=== PATIENT | female | born 1990 | race African-American/Black ===

== ENCOUNTER 2017-01-02 18:07 | Inpatient (IN) | payer OTHER ==
[~2017-01-02] VITALS: Ht 170.2 cm; Wt 171.1 kg
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
[2017-01-02 18:52] LABS: ABSOLUTE BASOPHIL COUNT 0 /CUMM (0.0-0.2); ABSOLUTE EOSINOPHIL COUNT 0.1 /CUMM (0.0-0.7); ABSOLUTE GRANULOCYTE CT 6.8 /CUMM (1.4-6.5); ABSOLUTE LYMPH COUNT 2.7 /CUMM (1.2-3.4); ABSOLUTE MONOCYTE COUNT 0.5 /CUMM (0.10-0.60); BASOPHIL % 0.4 % (0.0-2.0); EOSINOPHIL % 1.4 % (0-5); GRANULOCYTE % 66.7 % (42.2-75.2); HEMATOCRIT 29.8 % (37-47); MEAN CORPUSCULAR HGB 22.4 PG (27.0-31.0); MEAN CORPUSCULAR HGB CONC 30.8 G/DL (33.0-37.0); MEAN CORPUSCULAR VOLUME 72.9 FL (81.0-99.0); MEAN PLATELET VOLUME 8.2 FL (7.4-10.4); PLATELET COUNT 369 /CUMM (130-400); RBC DISTRIBUTION WIDTH 17.9 % (11.5-14.5); RED BLOOD CELL CT 4.09 /CUMM (4.20-5.40); WHITE BLOOD CELL COUNT 10.2 /CUMM (4.8-10.8)
--- NOTE | 2017-01-02 19:00 | NUR ---
PT CALM AND COOPERATIVE. PT STATED SHE CURRENTLY TAKES 10MG PROZAC BUT WAS SUPPOSED TO BE INCREASED FROM 10MG TO 20MG BY PROVIDER BUT IT NEVER WAS. PT STATED SHE HAS HAD INCREASED DEPRESSION RECENTLY. WHILE PT WAS WASHING DISHES TODAY (01/02/17), PT BECAME "VERY SAD" WITH NO APPARENT CAUSE AND BEGAN CRYING. PT SAY A KNIFE AND THOUGHT ABOUT CUTTING HER WRIST. THIS RN SPOKE TO PT'S CHILD'S GEOTECHNICAL LABORATORY TECHNICIAN, LUIS M ROONEY, . GEOTECHNICAL LABORATORY TECHNICIAN STATED PT'S CHILD IS WITH HIS GRANDMOTHER, CHAPARRITA MITCHELL , AND IS SAFE. GEOTECHNICAL LABORATORY TECHNICIAN REQUESTING THAT THE GRANDMOTHER BE UPDATED REGARDING DISPOSITION REGARDING FOREST OFFICER
[2017-01-02] MEDS ORDERED: FLUOXETINE HCL10 M2 PO (20:18)
[2017-01-02] MEDS ORDERED: LITHIUM CARBON300 M4 PO (20:19)
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
--- NOTE | 2017-01-02 21:20 | NUR ---
PT SLEEPING ON BED. SITTERS PRESENT
--- NOTE | 2017-01-02 22:22 | NUR ---
PER CRISIS, PT IS HOLD OVER FOR REASSESSMENT IN MORNING
--- NOTE | 2017-01-03 00:11 | NUR ---
PT CALM AND COOPERATIVE CURRENTLY. RESTING COMFORTSBLY ON BED IN .
[2017-01-03 00:47] LABS: LITHIUM < 0.2 mmol/L (0.6-1.2)
--- NOTE | 2017-01-03 02:55 | NUR ---
PT SLEEPING WITH REGULAR RR NOTED, NO ACUTE DISTRESS NOTED. SITTER REMAINS PRESENT. WILL CTM.
--- NOTE | 2017-01-03 05:24 | NUR ---
PT CONTINUES TO SLEEP WITH REGULAR RR NOTED. SITTER PRESENT
--- NOTE | 2017-01-03 06:00 | NUR ---
AWAKENED FOR VS. CO CASTELLANOS
--- NOTE | 2017-01-03 06:10 | NUR ---
TYLENOL 2TAB PO GIVEN. SITTER AT DOOR.
--- NOTE | 2017-01-03 07:27 | NUR ---
PT APPEARS TO BE SLEEPING AT THIS TIME WITH REGULAR RESPIRATIONS NOTED AND EQUAL CHEST RISE AND FALL SITTER REMAINS PRESENT AT THIS TIME AWAITING CRISIS RE EVAL AND DISPO TODAY
--- NOTE | 2017-01-03 08:51 | NUR ---
COPYING MACHINE MECHANIC IN ROOM FOR EVAL MOTHER CALLED - STATED SHE WILL CALL BACK LATER
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
--- NOTE | 2017-01-03 11:42 | NUR ---
PT AWAITING ADMISSION.
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
--- NOTE | 2017-01-03 13:15 | NUR ---
MEDICATED ORDERED (SEE MAR)
--- NOTE | 2017-01-03 14:33 | NUR ---
AWAITING ADMISSION TO [facility].
--- NOTE | 2017-01-03 16:11 | NUR ---
REPORT GIVEN TO KANIKA TRIANA
[2017-01-03 17:27] VITALS: BP 145/85
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
[2017-01-03 19:52] VITALS: BP 142/79
--- NOTE | 2017-01-03 21:25 | Admission Certification ---
Admission Certification Certification Statement - As attending physician, I certify that at the time of - admission, based on clinical presentation, severity of - symptoms, need for further diagnostic testing and - therapeutic interventions, and risk of adverse outcomes - without in-hospital treatment, in my clinical assessment, - this patient requires an acute hospital stay for a minimum - of two nights or longer. I have also considered psychsocial - factors such as support system, advanced age, financial - issues, cognitive issues, and failed out-patient treatments, - past re-admission history, safety of patient, and lack of - compliance as applicable. Specific rationale supporting this admission is: Depression, suicidal ideation.
--- NOTE | 2017-01-03 21:25 | History & Physical ---
General Information and HPI MD Statement: I have seen and personally examined GABBY DAMICO and documented this H&P. The patient is a 26 year old F who presented with a patient stated chief complaint of [depression]. Source of Information: patient Exam Limitations: no limitations History of Present Illness: 26 yo morbidly obese F with h/o bipolar disorder, prediabetes, asthma, HTN ( stopped meds), is admitted to Inpatient Psychiatry for worsening depression and suicidal ideation. She attempted to cut herself with a knife. Patient works at a [employer] and is a single mother. She has reportedly been noncompliant with her meds for depression. She was diagnosed with hypertension and stopped taking her meds few months ago. She reports she is being monitored for her prediabetes. She was told she has asthma and has an inhaler which she rarely uses. Last asthma exacerbation was 1 year ago. She c/o occasional right frontal headache that has resolved with Tylenol. No vision changes or dizziness. She currently denies chest pain, palpitations, dyspnea, GI or symptoms. 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 MOTHER (Hypertension). Paternal grandmother (CAD, [place]). Aunt (Colon cancer). Psychosocial History Where do you live? Home Who Do You Live With? child Services at Home: None Primary Language: Slovenian Smoking Status: Former Smoker (quit 2 months ago) ETOH Use: occasional use Illicit Drug Use: denies illicit drug use Functional Ability ADLs Independent: dressing, eating, toileting, bathing. Ambulation: independent IADLs Independent: shopping, food prep, telephone, transportation. Employment History Employment Employed ([employer]) Review of Systems Review of Systems Constitutional: Denies: chills, fever, weakness. EENTM: Reports: no symptoms. Cardiovascular: Denies: chest pain, orthopena, palpitations, peripheral edema. Respiratory: Denies: cough, hemoptysis, short of breath. GI: Denies: abdominal pain, constipation, diarrhea, nausea, vomiting. Genitourinary: Reports: no symptoms. Musculoskeletal: Reports: no symptoms. Neurological/Psychological: Reports: see HPI. Hematologic/Endocrine: Reports: no symptoms. All Other Systems: Reviewed and Negative Exam & Diagnostic Data Last 24 Hrs of Vital Signs/I&O Vital Signs Date Time Temp Pulse Resp B/P B/P Pulse O2 O2 Flow FiO2 Mean Ox Delivery Rate 01/04 1552 87 146/89 01/04 1223 82 138/81 01/04 0739 97.4 97 132/75 01/03 1952 99.1 86 142/79 Intake & Output 01/04 1600 01/04 0800 01/04 0000 Intake Total Output Total Balance Patient 377 lb Weight Physical Exam General Appearance Alert, Oriented X3, Cooperative, No Acute Distress Skin No Significant Lesion HEENT Atraumatic, PERRLA, EOMI Neck Supple Cardiovascular Regular Rate, Normal S1, Normal S2, No Murmurs Lungs Clear to Auscultation, Normal Air Movement Abdomen Normal Bowel Sounds, Soft, No Tenderness Neurological Exam Findings: Normal Gait, Normal Speech, Strength at 5/5 X4 Ext, Sensation Intact, Cranial Nerves 3-12 NL, Reflexes 2+ Cranial Nerves II through XII: Grossly intact Extremities No Edema, Normal Pulses Last 24 Hrs of Labs/Bravo: Laboratory Tests 01/02/171914: Urine Opiates Screen < 100.00, Methadone Screen < 40, Barbiturate Screen < 60, Ur Phencyclidine Scrn < 6.00, Amphetamines Screen < 100, U Benzodiazepines Scrn < 85, Urine Cocaine Screen < 50, Urine Cannabis Screen < 5.00, Urine Test NEGATIVE 01/02/171836: Anion Gap 9, Estimated GFR > 60, BUN/Creatinine Ratio 20.0, Glucose 88, Calcium 9.0, Total Bilirubin 0.2, AST 13 L, ALT 36, Alkaline Phosphatase 50, Total Protein 6.7, Albumin 3.8, Globulin 2.9, Albumin/Globulin Ratio 1.3, CBC w Diff NO MAN DIFF REQ, RBC 4.09 L, MCV 72.9 L, MCH 22.4 L, RDW 17.9 H, MPV 8.2, Gran % 66.7, Lymphocytes % 26.5, Monocytes % 5.0, Eosinophils % 1.4, Basophils % 0.4, Absolute Granulocytes 6.8 H, Absolute Lymphocytes 2.7, Absolute Monocytes 0.5, Absolute Eosinophils 0.1, Absolute Basophils 0, PUBS MCHC 30.8 L, [place] < 0.2 L, Serum Alcohol < 10.0 Diagnostic Data EKG Results -- CXR Results -- Assessment/Plan Assessment: 26 yo F with h/o bipolar disorder, now admitted for depression and suicidal ideation. 1. Continue management per Psych team. 2. Monitor BP, per med claim history, patient was on amlodipine and HCTZ, however she stopped these meds. Since her BP is persistently elevated, will resume amlodipine for now. Consider adding HCTZ if needed. Will obtain EKG. 3. h/o asthma. Provide TRC nebs as needed. 4. Microcytic anemia, chronic. Will obtain iron studies, B12 and folic acid. DVT ppx low risk, early ambulation. As Ranked By This Provider Problem List: 1. Major depression 2. Bipolar disorder, unspecified Miscellaneous Miscellaneous Documentation Attending Case Discussed With: Vince Grey Primary Care Physician: MARJ RAMOS MD Patient sees these Specialists -- Level of Patient Care: KANIKA Glasgow MD Review Statement Attending Statement Attending Statement: examined this patient
[2017-01-04 07:39] VITALS: BP 132/75
[2017-01-04 12:23] VITALS: BP 138/81
--- NOTE | 2017-01-04 14:12 | NUR ---
PT HAS BEEN VISIBLE IN THE MILIEU TODAY. HER GOAL WAS TO TRY NOT TO CRY. IN THE MILIEU PT HAS BEEN INTERACTING POSITIVELY WITH PEERS AND STAF ALIKE. SHE HAS BEEN IN ALL GROUPS TODAY, AND ADJUSTING WELL TO THE MILIEU. PT DENIES THOUGHTS OF HURTING HERSELF WHEN ASKED.
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
[2017-01-04 15:52] VITALS: BP 146/89
--- NOTE | 2017-01-04 15:56 | SOCIAL WORKER TX PLAN PSYCH ---
Treatment Plan - Please Document: - Evidence that there is ongoing collaboration between - the patient and the interdisciplinary team, - including the patient's active participation and - responsibility for engaging in the treatment regimen, - and that the treatment plan is individualized and - relevant to the patient's conditions. - Treatment plan should reflect documentation indicating - that all active therapeutic efforts are included. Strengths/Capabilities: employed, in treatment,supportive family Physical Limitations (Interventions): none stated Problem/Goals #1 Problem #1: Mood flucuation Goal (Short Term): Explore feelings and thoughts about self, his or her own abilities, and future plans. Explore mood state, level of energy, level of control over thoughts, and sleeping pattern. Goal (Mcfp): Accomplish mood stability, having slower reaction with anger, less expansive, and being more socially appropriate and sensitive. To be med compliant, and follow up with appropriate levels of care upon discharge to maintain stabilty of mood Interventions: Learn ways to manage symptoms of bipolar accordingly and identify coping skills to prevent suicidal ideation from occurring due to anxious/depressed feelings. Learn ways to manage medications accordingly and identify positive supports to manage unusual symptoms that may occur. Learn ways to manage bipolar symptoms accordingly and identify positive supports to manage life stressors and mood fluctuations. Modalities: Encourage groups, education on bipolar disorder, support meeting. DSM5/PS Stressors/Medical Prob Diagnosis' (DSM 5, Stressors, Medical): Bipolar D/O unspecified depressed F31.9 Current GAF: 25 Treatment Team - Responsibilities of members of the treatment team include: - Medication Management- MD or EMPLOYEE'S REPRESENTATIVE - Medication Administration and Monitoring- Nurse - Group Therapy- Occupational Therapist - 1:1 Therapy,Disch Planning,family involvement-Residence Director
--- NOTE | 2017-01-04 15:59 | SOCIAL WORKER PROG NOTE PSYCH ---
Social Work Progress Note Progress Note Mother Kaci will attend family meeting tomorrow at 3p
[2017-01-04 19:33] VITALS: BP 147/88
--- NOTE | 2017-01-04 19:58 | NUR ---
PT IS CALM, COOPERATIVE WITH STAFF AND PEERS, AND COMPLIANT WITH UNIT RULES. PT IS OFTEN IN MILIEU, INTERACTING WELL WITH PEERS. MOOD IS STABLE, AFFECT IS EUTHYMIC TO FULL RANGE, COMMUNICATION IS ORGANIZED AND APPEARS NORMAL IN ALL RESPECTS, AND APPETITE IS NORMLA. PT DENIES SI AT THIS TIME.
--- NOTE | 2017-01-05 06:54 | NUR ---
PT QUIETLY SOCIAL WITH ROOMMATE. PT WATCHED TV WITH OTHERS ON EVENINGS. PT SLEPT.
[2017-01-05 07:42] VITALS: BP 142/76
[2017-01-05 08:32] LABS: ABSOLUTE BASOPHIL COUNT 0 /CUMM (0.0-0.2); ABSOLUTE EOSINOPHIL COUNT 0.2 /CUMM (0.0-0.7); ABSOLUTE GRANULOCYTE CT 5.6 /CUMM (1.4-6.5); ABSOLUTE LYMPH COUNT 2.7 /CUMM (1.2-3.4); ABSOLUTE MONOCYTE COUNT 0.3 /CUMM (0.10-0.60); BASOPHIL % 0.3 % (0.0-2.0); EOSINOPHIL % 1.9 % (0-5); GRANULOCYTE % 63.5 % (42.2-75.2); HEMATOCRIT 33.1 % (37-47); MEAN CORPUSCULAR HGB 22.8 PG (27.0-31.0); MEAN CORPUSCULAR HGB CONC 31.7 G/DL (33.0-37.0); MEAN CORPUSCULAR VOLUME 71.9 FL (81.0-99.0); MEAN PLATELET VOLUME 8.9 FL (7.4-10.4); PLATELET COUNT 408 /CUMM (130-400); RBC DISTRIBUTION WIDTH 17.6 % (11.5-14.5); RED BLOOD CELL CT 4.61 /CUMM (4.20-5.40); WHITE BLOOD CELL COUNT 8.8 /CUMM (4.8-10.8)
--- NOTE | 2017-01-05 11:51 | NUR ---
PT IS CALM AND COOPERATIVE. SHE IS ATTENDING GROUPS AND COMPLIANT WITH HER MED REGIME. PT TALKS APPROPRIATELY IN GROUPS ABOUT HER MOOD DISORDER AND SOME POSITIVE WAYS SHE CAN COPE. WHEN ASKED SHE DENIED ANY THOUGHTS OF SUICIDE OR SELF HARM
[2017-01-05 12:05] VITALS: BP 133/79
--- NOTE | 2017-01-05 14:56 | CP SOUTH PROGRESS NOTE PSYCH ---
Psych (Inpt) Progress Note Progress Note Include the following elements, when applicable: Involvement in the active treatment of the patient with behavioral observations of the patient and the patient's response to the treatment. Review of the ongoing treatment process in the context of the treatment plan. Indication of how multi-disciplinary staff members are carrying out the treatment plan. Plans for future interventions and recommendations for revision of the treatment plan. Liaison with other physicians/providers. Progress Note: I discussed this patient's progress to date, current mental status, treatment process in the context of the treatment plan, and discharge planning with staff/ team in the daily morning inpatient team meeting. I also met with the patient myself in individual session. OBJECTIVE: Current Medications Sig/Martir Start time Last Medication Dose Route Stop Time Status Admin Acetaminophen 650 MG Q6P PRN 01/03 1215 AC PO Al Hydroxide/Mg 30 ML Q4-6 PRN PRN 01/03 1215 AC Hydroxide PO Albuterol Sulfate 2 PUF Q4P PRN 01/04 1915 AC INH Amlodipine Besylate 5 MG DAILY 01/04 191 AC 01/05 PO 0759 Famotidine 40 MG DAILY 01/03 1204 AC 01/05 PO 0759 Fluoxetine HCl 20 MG 0800 01/05 0800 AC 01/05 PO 0759 Gabapentin 300 MG Q6P PRN 01/03 1215 AC PO Lurasidone HCl 20 MG DAILY@0800 01/05 0800 AC 01/05 PO 0759 Magnesium Hydroxide 30 ML AT BEDTIME PRN 01/03 1215 AC PO Multivitamins 1 TAB DAILY 01/03 1205 AC 01/05 PO 0759 Trazodone HCl 50 MG AT BEDTIME NEED.. 01/03 1215 AC PO Vital Signs Date Time Temp Pulse Resp B/P B/P Pulse O2 O2 Flow FiO2 Mean Ox Delivery Rate 01/05 1603 91 143/95 01/05 1205 74 133/79 01/05 0759 98.3 78 22 142/76 01/05 0742 98.3 78 142/76 01/04 2228 147/88 01/04 1933 99.0 82 147 Laboratory Tests 01/05/17 0659: Hemoglobin A1c 5.7, Iron 32 L, TIBC 330, Ferritin 38.4, Triglycerides 130, Cholesterol 182, LDL Cholesterol, Calc 127, HDL Cholesterol 29 L, Cholesterol/ HDL Ratio 6 H, Vitamin B12 352, Folate 10.8, TSH 3.620, CBC w Diff NO MAN DIFF REQ, RBC 4.61, MCV 71.9 L, MCH 22.8 L, RDW 17.6 H, MPV 8.9, Gran % 63.5, Lymphocytes % 30.4, Monocytes % 3.9, Eosinophils % 1.9, Basophils % 0.3, Absolute Granulocytes 5.6, Absolute Lymphocytes 2.7, Absolute Monocytes 0.3, Absolute Eosinophils 0.2, Absolute Basophils 0, PUBS MCHC 31.7 L ASSESSMENT: Chart, progress notes, labs, VS and medication list reviewed. Vital signs within normal limits. Lab results reviewed - see above. Reviewed patient's progress to date with nursing staff who described the patient as visible in the milieu, social with peers, involved in group/community activites, no reports of SI and sleeping well. Met with patient for the first time today on CPS, together with Diane Sorenson LCSW and the patient's mother, Kaci, for a family meeting. The patient's treatment progress to date, medication regimen, level of safety and discharge planning were reviewed and discussed. She reported feeling "off" from recent increase in Prozac to 20mg daily and described this as "the same feeling I experienced" after taking #2 Prozac 10mg caps [employer]. Patient struggled to elaborate further on this feeling, but stated she didn't like it. Patient was agreeable to decreasing Prozac back to 10mg QAM. Patient stated she overall is tolerating Latuda well with the exception of feeling sleepy. Offered to reschedule Latuda to PM with food. Patient declined option stating she forgets to take medications at night. Patient reported her mood as "good." Affect was full-range. She laughed and engaged appropriately. She denied feeling hopeless, helpless, worthless or guilty. Reported her sleep and appetite are good. Reported her energy is "so so, I'm still adjusting to medications." She denied passive and active suicidal ideation, plans and intent. Gave protective factors of "my mom" and "my son." She denied homicidal ideation, auditory and visual hallucinations. Eye contact was appropriate. Speech was normal in rate, tone and volume. The patient's mother did not express any acute safety concerns surrounding the patient being discharged. However, she was in favor, of a discharge plan that included more than individual therapy and medication management. IOP was recommended by treatment team, however the patient expressed her work schedule would not accomodate IOP schedule. Patient was in agreement to resuming services at [facility]. She was open about exploring group therapy at [facility] which she had tried in the past in addition to medication management and individual therapy, or having more frequent individual therapy sessions arranged. Both the patient and her mother were in favor of plan. PLAN: 1. Decrease Prozac from 20mg QAM to 10mg QAM. 2. Cont. Latuda 20mg QAM for mood stabilization. 3. Arrange after care services with [facility]. 4. Tentative discharge tomorrow.
[2017-01-05 16:03] VITALS: BP 143/95
[2017-01-05 19:41] VITALS: BP 143/79
--- NOTE | 2017-01-05 20:40 | NUR ---
PT IS CALM, COOPERATIVE WITH STAFF AND PEERS, AND COMPLIANT WITH UNIT RULES. PT IS OFTEN IN MILIEU, INTERACTING WELL WITH OTHERS. MOOD IS STABLE, AFFECT IS FULL RANGE, COMMUNICATION IS ORGANIZED AND APPEARS NORMAL IN ALL RESPECTS, AND APPETITE IS NORMAL. PT DENIES SI AT THIS TIME.
--- NOTE | 2017-01-06 05:56 | NUR ---
PT QUIETLY SOCIAL WITH ROOMMATE. PT SLEPT. PT LOOKING FORWARD TO DC TODAY.
[2017-01-06 07:33] VITALS: BP 138/74
[2017-01-06] MEDS ORDERED: FLUOXETINE HCL10 M2 PO (07:56)
[2017-01-06] MEDS ORDERED: LATUDA20 M1 PO (07:57)
[2017-01-06] MEDS ORDERED: FAMOTIDINE20 M1 PO (08:00)
[2017-01-06] MEDS ORDERED: ONE DAILY MULT1 EAC2 PO (08:01)
[2017-01-06] MEDS ORDERED: AMLODIPINE BESYL5 M1 PO (08:02)
--- NOTE | 2017-01-06 08:02 | CP SOUTH PROGRESS NOTE PSYCH ---
Psych (Inpt) Progress Note Progress Note Include the following elements, when applicable: Involvement in the active treatment of the patient with behavioral observations of the patient and the patient's response to the treatment. Review of the ongoing treatment process in the context of the treatment plan. Indication of how multi-disciplinary staff members are carrying out the treatment plan. Plans for future interventions and recommendations for revision of the treatment plan. Liaison with other physicians/providers. Progress Note: I discussed this patient's progress to date, current mental status, treatment process in the context of the treatment plan, and discharge planning with staff/ team in the daily morning inpatient team meeting. I also met with the patient myself in individual session. Current Medications Sig/Martir Start time Last Medication Dose Route Stop Time Status Admin Acetaminophen 650 MG Q6P PRN 01/03 1215 AC PO Al Hydroxide/Mg 30 ML Q4-6 PRN PRN 01/03 121 AC Hydroxide PO Albuterol Sulfate 2 PUF Q4P PRN 01/04 1915 AC INH Amlodipine Besylate 5 MG DAILY 01/04 191 AC 01/05 PO 0759 Famotidine 40 MG DAILY 01/03 1204 AC 01/05 PO 0759 Fluoxetine HCl 10 MG 01/06 0800 AC PO Fluoxetine HCl 20 MG 01/05 0800 DC 01/05 PO 0759 Gabapentin 300 MG Q6P PRN 01/03 121 AC PO Lurasidone HCl 20 MG DAILY@0800 01/05 0800 AC 01/05 PO 0759 Magnesium Hydroxide 30 ML AT BEDTIME PRN 01/03 121 AC PO Multivitamins 1 TAB DAILY 01/03 120 AC 01/05 PO 0759 Trazodone HCl 50 MG AT BEDTIME NEED.. 01/03 1215 AC PO Vital Signs Date Time Temp Pulse Resp B/P B/P Pulse O2 O2 Flow FiO2 Mean Ox Delivery Rate 01/06 0733 97.4 79 138/74 01/05 1941 99.8 93 143/79 01/05 1603 91 143/95 01/05 120 74 133/79 ASSESSMENT: Chart, progress notes, labs, VS and medication list reviewed. Vital signs within normal limits. No new lab results today. Met with patient this morning at 8:00AM. She shared that she felt yesterday's family meeting was very productive and felt supported by her mother. She described her mood as "really good." Affect full-range, bright, non-labile. She had no complaints. She described her energy level as "normal." Reported her sleep and appetite are good. She rated her anxiety a 2/10 (10 being the worst). She rated her depression a 0/10 (10 being the worst). She denied feeling hopeless, helpless, worthless or guilty. She denied passive and active suicidal ideation, plans and intent. Denied homicidal ideation, auditory or visual hallucinations. She denied urges to self-injure. She stated and also believed she will not harm herself or others. She identified protective factors of "my son," "my mom" and "my job." She was future oriented to return to work and follow up with outpatient psychiatric providers. Her thought process was linear and goal directed. There was no evidence of paranoia or rosalia delusions. She reported tolerating reduction in Prozac to 10mg QAM better and tolerating Latuda fairly well. She reported feeling safe and ready for discharge. PLAN: 1. Discharge today to home and into the care of mother. 2. All discharge medications were e-prescribed to [facility] in [place], [place] today. [facility] on 01/10/17 at 10:30AM, 01/18/17 at 11AM (walk-in appt.) and on 01/26/17 at 11AM. 4. F/u with Care Lolis Russell APRN, for medication management on 01/12/17 at 2:30PM. 5. In the event of an emergency, call 911/go to nearest emergency department. Patient verbalized understanding of instructions.
--- NOTE | 2017-01-06 09:04 | NUR ---
PT IS SCHEDULED FOR DISCHARGE TODAY TO [facility]. SHE STATES HER FOLLOW UP WILL BE WITH [facility] AND SHE AGREES WITH THIS PLAN. SHE DENIES ANY THOUGHTS OF SUICIDE OR SELF HARM AND IS LOOKING FOR [place] TO GOING HOME. SHE VERBALIZES A GOOD UNDERSTANDING OF HER MED REGIME. PT IS GIVEN EDUCATION R/T MANAGING HER MOOD DISORDER AND ON PREVENTING SUICIDE
--- NOTE | 2017-01-06 09:56 | SOCIAL WORKER PROG NOTE PSYCH ---
Social Work Progress Note Progress Note Spoke with Meg Benitez APRN regarding Cheri, on progress and discharge planning. Met with Cheri she stated she is doing well, ready to go home. She denied SI/HI, no psychosis. She slept weell, and feels 'tired" but knows she is adjusting to her medications. She discussed this with Carrie Kruger APRN. Her mood is stable. She stated she had a good meeting with her Mother, Meg Benitez APRN and Diane Freeman LCSW yesterday. Her Mother is caring for her son, and will continue to help Cheri as needed in care. Cheri will follow-up with [facility] - Jose Alfredo Clavert LCSW 01/10/17 at 10:30am, and (2) walk- in sessions with Yohan Calvert LCSW (01/18/17 at 11am, 01/26/17 at 11am. Also, [facility] prescriber - Lolis Russell APRN on ., 01/12/17 at 2:30pm. Recommend Cheri attend group weekly at [facility]. Discussed with Cheri if she needs more support to consider another group or IOP (always an option). [facility] will continue in-home supports with Cheri and her son, Alvarez. [place] IV: job stress,
--- NOTE | 2017-01-06 11:16 | DISCHARGE SUMMARY REPORT-PSYCH ---
Visit Information Visit Dates/Diagnosis' Admission Date: 01/03/17 Discharge Date: 01/06/17 Reason for Admission: Patient was admitted to inpatient psychiatry on 01/03/17 on a voluntary basis, referred by [facility] after superficially cutting herself with a knife secondary to worsening depression over approximately 2 months and medication nonadherence. Psy Discharge Primary Diag: Bipolar disorder, MRE depressed Psy Discharge Secondary Diag: HTN, Asthma, GERD, Microcytic anemia (chronic). Hospital Course Significant Lab Findings: Lab Cholesterol/HDL Ratio 6 % H 01/05/17 0659 HDL Cholesterol 29 mg/dL L 01/05/17 0659 Iron 32 ug/dL L 01/05/17 0659 Hct 33.1 % L 01/05/17 0659 Hgb 10.5 G/DL L 01/05/17 0659 MCH 22.8 PG L 01/05/17 0659 MCV 71.9 FL L 01/05/17 0659 Plt Count 408 /CUMM H 01/05/17 0659 RDW 17.6 % H 01/05/17 0659 [place] < 0.2 mmol/L L 01/02/17 1837 Urine Test NEGATIVE 01/02/17 1915 01/03/17 EKG: Sinus rhythm with a rate of 76. KS: 156. QRSD: 78. QT: 372. QTc: 419. P: 109. QRS: 15. T: 57. Normal EKG confirmed by geological aide, Dr. Ciaran Sterling. Course Complications: None. Consultations: The patient was seen for admission history and physical by bulldogger Dr. lGenn Grey. Dr. Grey restarted Amlodipine 5mg daily for HTN which the patient had self-discontinued. Please see MD note for additional information. Allergies: Coded Allergies: No Known Allergies (01/02/17) Hospital Course/TX Response: The patient was monitored on the unit for safety, mood, self-injurious behaviors and suicidal ideation. She participated fully in multimodal treatments on the unit. She maintained safety. She admitted to medication nonadherence with [place] x 1 week prior emergency department arrival. She was averse to resuming [place], reported she did not like the way it made her feel. [place] was discontinued. She was agreeable to a trial of Latuda. Latuda 20mg daily was started for mood stabilization. Prozac was increased from 10mg daily to 20mg daily for depression. Shortly after increase in Prozac, patient reported feeling "off." She was unabe to elaborate further on this feeling. She requested a decrease back to 10mg daily which was honored. Patient reported tolerating medications well and denied further untoward effects. During the hospital course, the patient's mood and affect improved. The patient consistently denied suicidal ideation and urges to self-injure. A family meeting was held with the patient, her mother, Diane Clemons, YAMILETH, and Justin. The patient's treatment progress, medication regimen, level of safety and discharge planning were reviewed and discussed. The patient's mother did not express any acute safety concerns surrounding the patient being discharged. However, she was in favor, of a discharge plan that included more than individual therapy once or twice a month and medication management. IOP was recommended for the patient by the treatment team, however, the patient expressed that her work schedule would not accomodate an IOP schedule. Patient was in agreement to resuming services at [facility]. She was open about exploring group therapy at [facility] which she had tried in the past in addition to medication management and individual therapy, or having more frequent individual therapy sessions arranged. Both the patient and her mother were in favor of plan. On the date of discharge, 01/06/17, the patient shared that she felt yesterday's family meeting was very productive. She expressed feeling supported by her mother. She described her mood as "really good." Affect full-range, bright, appropriate, non-labile. Eye contact was appropriate. Speech was normal in rate, tone and volume. She had no complaints. She described her energy level as "normal." Reported her sleep and appetite are good. She rated her anxiety a 2/10 (10 being the worst). She rated her depression a 0/10 (10 being the worst). She denied feeling hopeless, helpless, worthless or guilty. She denied passive and active suicidal ideation, plans and intent. Denied homicidal ideation, auditory or visual hallucinations. She denied urges to self-injure. She stated and also believed she will not harm herself or others. She identified protective factors of "my son," "my mom" and "my job." She was future oriented to return to work and follow up with outpatient [facility] psychiatric providers. Her thought process was linear and goal directed. There was no evidence of paranoia or rosalia delusions. She reported tolerating reduction in Prozac (to 10mg QAM) well and tolerating Latuda fairly well. She denied the presence of side effects. There was no evidence of movement disorder. She reported feeling safe and ready for discharge. Discharge HBIPS - Tobacco Use Treatment Offered Post DC Medications Offered: Not Applicable Post DC Tobacco Treatment Plan: Not Applicable - EtOH/Drug Use D/O Treatment Offered Post DC Medications Offered: NA-No EtOH/Drug Use D/O Post DC EtOH/SubAbuse TX Plan: NA-No EtOH/Drug Use D/O Metabolic Screening - Screen if on a Neuroleptic Medication - Metabolic screening should include: - Blood Pressure, BMI, Glucose or Hgb A1c, & a - Lipid profile from within the past 365 days. Metabolic Screening () Not Applicable, patient not on a neuroleptic. OR ([X]) Patient on a neuroleptic(s) . Enter below results for Glucose or Hemoglobin A1C, and lipid panel if obtained during the last 365 days. BMI: 59.100 Blood Pressure: 145/78 Laboratory Results (If applicable): Lab Cholesterol 182 MG/DL 01/05/17 0659 Cholesterol/HDL Ratio 6 % H 01/05/17 0659 Glucose 88 mg/dL 01/02/17 1837 HDL Cholesterol 29 mg/dL L 01/05/17 0659 Hemoglobin A1c 5.7 % 01/05/17 0659 LDL Cholesterol, Calc 127 mg/dL 01/05/17 0659 Triglycerides 130 mg/dL 01/05/17 0659 Discharge Instructions General Discharge Information Discharge Medications: Discharge Medications- (Dose, route, freq, indication): START taking these NEW Home Medications: Amlodipine Besylate Dose: ORAL, DAILY for HTN Qty: 14 Sent to (Amlodipine 5 Milligram Take 1 tab po daily. Refills: 0 Pharm 1 Besylate) 5 MG TABLET Lurasidone HCl Dose: ORAL, DAILY@0800 for Qty: 14 Sent to (Latuda) 20 MG 20 Milligram mood stabilization Refills: 0 Pharm 1 TABLET Take 1 tab po QAM with food. Famotidine Dose: ORAL, DAILY for GERD Qty: 28 Sent to (Famotidine) 20 MG 40 Milligram Take 2 tabs po daily. Refills: 0 Pharm 1 TABLET Multivitamin (One Dose: ORAL, DAILY for vitamin Qty: 14 Sent to Daily Multivitamin) 1 Tablet support Refills: 0 Pharm 1 1 EACH TABLET Take 1 tab po daily. CONTINUE taking these Home Medications: Fluoxetine HCl Dose: ORAL, DAILY for Renewed Sent (Fluoxetine HCl) 10 MG 1 Capsule DEPRESSION to Pharm 1 CAPSULE Take 1 cap po daily. Qty: 14, Refills: 0 STOP taking these DISCONTINUED Home Medications: [place] Carbonate ([place] Dose: ORAL, TWICE DAILY for DEPRESSION Carbonate) 300 MG CAPSULE 1 Capsule Reason Stopped: Per Doctor Decision 1: [facility] , [address], [place] [id number] Your Preferred Pharmacy [facility] [address] [place] [address] Multiple Neuroleptics: ([X]) Not Applicable OR Document below three failed attempts at monotherapy, or a plan to taper to monotherapy, or augmentation of Clozapine. () Patient's Diet: Regular. Patient's Activity: No restrictions. DC Disposition: Patient to return to home and self-care. Patient's mother picked her up from hospital, post-discharge. Recommendations: The patient was advised to please take her medications as prescribed. She was advised to follow up with her PCP regarding management for microcytic anemia and HTN. She was advised to follow up with outpatient referrals (see in below referral section). She was advised that in the event of an emergency, to call [phone]/go to nearest emergency department. Patient verbalized understanding of all instructions. *Recommend exploring group therapy options at [facility] for increased support and symptom management. Referred To: Post Discharge Referrals Provider Referral Service Date: 01/11/17 Referred To: [[facility] ] Notes: [address]#[phone] JUAN WARNER LCSW SCHEDULED 01/10/17 AT 10:30AM WALK-IN 01/18/17 AT 11AM SCHEDULED 01/26/17 at 11AM Provider Referral Service Date: 01/31/17 Referred To: [[facility]] Notes: [address]#[phone] APPT. on , 01/12/17 AT 2:30PM - VLE MENCHACA APRN. Copies To: [facility]
[2017-01-06 12:09] VITALS: BP 145/78
== END 2017-01-06 15:25 | DRG 753 ==
LOC: ERH 18:07 → CP SOUTH 01-03 10:36 → ERHI 01-03 10:36 → ENTRNSPT 01-03 16:23 → CP SOUTH 01-03 17:12 → CMPTRNSPT 01-04 07:19 → CP SOUTH 01-04 09:54 → ENPENDDIS 01-06 23:59
PROVIDERS: Physician Assistant Medical; ADMIT Psychiatry & Neurology Psychiatry
DX: F31.9 Bipolar disorder, unspecified (principal); I10 Essential (primary) hypertension; J45.909 Unspecified asthma, uncomplicated; K21.9 Gastro-esophageal reflux disease without esophagitis
CPT/HCPCS: 36415; 80307; 81025; 93005; 93010; G0463; G0480; J3490

== ENCOUNTER 2017-11-16 17:53 | Inpatient (IN) | payer OTHER ==
[~2017-11-16] VITALS: Ht 167.6 cm; Wt 174.6 kg
[~2017-11-16 17:53] MED LIST: AMLODIPINE BESYL5 M1 PO; FAMOTIDINE20 M1 PO; FLUOXETINE HCL10 M2 PO; LATUDA20 M1 PO; LITHIUM CARBON300 M4 PO; ONE DAILY MULT1 EAC2 PO
--- NOTE | 2017-11-16 18:24 | ED PSYCHIATRIC COMPLAINT ---
History of Present Illness General Chief Complaint: Psychiatric Related Complaint Stated Complaint: BIBA FOR DEPRESSION, -SI/HI Source: patient Exam Limitations: no limitations Vital Signs & Intake/Output Vital Signs & Intake/Output Vital Signs Date Time Temp Pulse Resp B/P B/P Pulse O2 O2 Flow FiO2 Mean Ox Delivery Rate 11/17 0750 97.2 82 18 118/73 98 Room Air 11/17 0614 98.1 77 18 104/60 99 Room Air 11/16 2148 98.7 98 18 118/85 98 11/16 1902 98.7 94 18 135/88 99 ED Intake and Output 11/17 0000 11/16 1200 Intake Total 0 Output Total Balance 0 Intake, Oral 0 Allergies Coded Allergies: No Known Allergies (01/02/17) Reconcile Medications Amlodipine Besylate 5 MG TABLET 5 MG PO DAILY HTN Take 1 tab po daily. Famotidine 20 MG TABLET 40 MG PO DAILY GERD Take 2 tabs po daily. Fluoxetine HCl 10 MG CAPSULE 1 CAP PO DAILY DEPRESSION Take 1 cap po daily. Lurasidone HCl (Latuda) 20 MG TABLET 20 MG PO DAILY@0800 mood stabilization Take 1 tab po QAM with food. Multivitamin (One Daily Multivitamin) 1 EACH TABLET 1 TAB PO DAILY vitamin support Take 1 tab po daily. Triage Note: PT BIBA FROM [facility]. PT HAS HX OF BIPOLAR AND REPORTED "FEELING VERY DEPRESSED". PT DENIES SI/HI. 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 Triage Nurses Notes Reviewed? yes Onset: Gradual Duration: week(s): Timing: recent history Severity: moderate : No Patient currently breastfeeds: No HPI: 26YO FEMALE with hx of bipolar disorder presents to ED complaining of recent worsening of depression. Patient reports that she has taken her latuda and fluoxetine as prescribed for the past 2 weeks. Patient reports that these 2 medications are new for her, she has struggled with finding medications that work for her. Patient states that she has chronic suicidal thoughts however has no true suicidal intent. Patient states that she has to take care of her 6-year -old son and no she would not take her own life although she has chronic thoughts about wanting to harm herself. Patient reports intermittent depression , anhedonia, lack of emotions at times, oversleeping. Patient reports history of recent delusional thinking however states that her mother talked her through it. She denies active HI, hallucinations, drug use. (Mirella Cheatham) Past History Travel History Traveled to [place] past 21 day No Medical History Any Pertinent Medical History? see below for history Neurological: NONE EENT: NONE Cardiovascular: hypertension Respiratory: asthma Gastrointestinal: NONE Hepatic: NONE Renal: NONE Musculoskeletal: NONE Psychiatric: depression Endocrine: PRE DIABETES Blood Disorders: anemia Cancer(s): NONE RN DISCHARGE/Reproductive: genital herpes, miscarriage History of MRSA: Yes History of VRE: No History of CDIFF: No Surgical History Surgical History: , tonsillectomy Psychosocial History Who do you live with Son Services at Home None What is your primary language Occitan Tobacco Use: Refused to answer Family History Family History, If Any: FATHER (HTN and diabetes). MOTHER (Hypertension). Paternal grandmother (CAD, [place]). Aunt (Colon cancer). Hx Contributory? No (Mirella Cheatham) Review of Systems Review of Systems Constitutional: Reports: no symptoms. EENTM: Reports: no symptoms. Respiratory: Reports: no symptoms. Cardiovascular: Reports: no symptoms. GI: Reports: no symptoms. Genitourinary: Reports: no symptoms. Musculoskeletal: Reports: no symptoms. Skin: Reports: no symptoms. Neurological/Psychological: Reports: see HPI. Hematologic/Endocrine: Reports: no symptoms. Immunologic/Allergic: Reports: no symptoms. All Other Systems: Reviewed and Negative (Mirella Cheatham) Physical Exam Physical Exam General Appearance: well developed/nourished, no apparent distress, alert, awake Head: atraumatic, normal appearance Eyes: Bilateral: normal appearance, PERRL, EOMI. Ears, Nose, Throat: hearing grossly normal Neck: normal inspection, supple, full range of motion Respiratory: normal breath sounds, no respiratory distress, lungs clear Cardiovascular: regular rate/rhythm Extremities: normal range of motion Neurological/Psychiatric: awake, alert, normal mood/affect, calm Appearance/Memory/Insight: appropriate appearance, appropriate insight Behavoir/Eye Contact/Speech: cooperative, good eye contact, tearful Thoughts/Hallucinations: normal thought pattern, no apparent hallucination Skin: intact, normal color, warm/dry SAD PERSONS SAD PERSONS Response Value Depression/Hopelessness? yes 2 Single//? yes 1 Social Support? has support 0 Total 3 SAD PERSONS Done? yes (Mirella Cheatham) Progress Differential Diagnosis: drug intoxication, drug overdose, drug withdrawal, suicidal ideation, depression, bipolar disorder Plan of Care: Orders Procedure Date/time Status Regular Diet 11/17 B Active Admit to inpatient 11/17 1018 Active Continuous Observation Monitor 11/17 0700 Active Continuous Observation Monitor 11/17 0300 Active Continuous Observation Monitor 11/16 2300 Active Continuous Observation Monitor 11/16 1900 Active Continuous Observation Monitor 11/16 183 Active ED CRISIS PSYCH CONSULT 11/16 183 Active URINE 11/16 182 Complete URINE DRUG SCREEN FOR ER ONLY 11/17 1823 Complete URINALYSIS 11/17 1823 Complete ETHANOL 11/17 1823 Complete COMPREHENSIVE METABOLIC PANEL 11/17 1823 Complete CBC WITHOUT DIFFERENTIAL 11/17 1823 Complete Current Medications Sig/Martir Start time Last Medication Dose Stop Time Status Admin Bupropion HCl 100 MG ONCE ONE 11/17 1030 UNVr (Wellbutrin SR) 11/17 1031 Non-Formulary 1 UNIT BID 11/16 220 CAN Medication (NON FORMULARY) Non-Formulary 1 UNIT QPM 11/16 220 UNVr 11/16 Medication 2147 (NON FORMULARY) Laboratory Tests 11/16/171841: Anion Gap 13, Estimated GFR > 60, BUN/Creatinine Ratio 17.1, Glucose 92, Calcium 9.7, Total Bilirubin 0.3, AST 13 L, ALT 19, Alkaline Phosphatase 53, Total Protein 7.4, Albumin 4.0, Globulin 3.4, Albumin/Globulin Ratio 1.2, CBC w Diff NO MAN DIFF REQ, RBC 4.61, MCV 71.2 L, MCH 22.2 L, MCHC 31.2 L, RDW 18.6 H, MPV 8.3, Gran % 64.6, Lymphocytes % 26.7, Monocytes % 4.8, Eosinophils % 3.1, Basophils % 0.8, Absolute Granulocytes 6.8 H, Absolute Lymphocytes 2.8, Absolute Monocytes 0.5, Absolute Eosinophils 0.3, Absolute Basophils 0.1, Serum Alcohol < 10.0 11/16/171839: Urine Opiates Screen < 100, Methadone Screen < 40, Barbiturate Screen < 60, Ur Phencyclidine Scrn < 6.00, Amphetamines Screen 118, U Benzodiazepines Scrn < 85, Urine Cocaine Screen < 50, Urine Cannabis Screen 9.70, Urine Color YEL, Urine Clarity CLEAR, Urine pH 6.0, Ur Specific [place] 1.020, Urine Protein NEG, Urine Ketones NEG, Urine Nitrite NEG, Urine Bilirubin NEG, Urine Urobilinogen 0.2, Ur Leukocyte Esterase NEG, Ur Microscopic EXAM NOT REQUIRED, Urine Hemoglobin NEG, Urine Glucose NEG, Urine Test NEGATIVE Patient's labs and urinalysis are pending. Patient's labs are within normal limits, no acute abnormalities. Awaiting crisis evaluation and disposition. The patient was signed out to Dr. Blanco pending crisis evaluation and disposition. Hand-Off Endorsed To: Ankur Blanco MD Endorsed Time: 1999 Pending: consult (crisis) (Mirella Cheatham) Hand-Off Endorsed To: Compa Castellanos MD Endorsed Time: 699 Pending: other (bed search) (Ankur Blanco MD) Comments: 11/17/2017 7:23:01 AM patient signed out to me by Dr. Blanco at shift exchange consultant. (Compa Castellanos MD) Departure Departure Disposition: STILL A PATIENT Condition: Stable Clinical Impression Primary Impression: Suicidal ideation Secondary Impressions: Bipolar disorder Qualifiers: Active/Remission status: remission status unspecified Qualified Code: F31.9 - Bipolar disorder, unspecified Depression Qualifiers: Depression Type: unspecified Qualified Code: F32.9 - Major depressive disorder, single episode, unspecified Referrals: Shameka Cloud MD (PCP/Family) Departure Forms: Customer Survey General Discharge Information (Mirella Cheatham) PA/CURRICULUM DEVELOPER Co-Sign Statement Statement: ED Attending supervision documentation- x I saw and evaluated the patient. I have also reviewed all the pertinent lab results and diagnostic results. I agree with the findings and the plan of care as documented in the PA's/CURRICULUM DEVELOPER's documentation. [] I have reviewed the ED Record and agree with the PA's/CURRICULUM DEVELOPER's documentation. [] Additions or exceptions (if any) to the PAs/CURRICULUM DEVELOPER's note and plan are summarized below: [] (Ankur Blanco MD) Psych Admission Note Psychiatric Admission: I have seen and evaluated GABBY DAMICO. I have also reviewed all the pertinent lab results and diagnostic results. GABBY DAMICO will be admitted to our inpatient Psychiatric unit for treatment and care. (Compa Castellanos MD)
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
[2017-11-16 18:53] LABS: ABSOLUTE BASOPHIL COUNT 0.1 /CUMM (0.0-0.2); ABSOLUTE EOSINOPHIL COUNT 0.3 /CUMM (0.0-0.7); ABSOLUTE GRANULOCYTE CT 6.8 /CUMM (1.4-6.5); ABSOLUTE LYMPH COUNT 2.8 /CUMM (1.2-3.4); ABSOLUTE MONOCYTE COUNT 0.5 /CUMM (0.10-0.60); BASOPHIL % 0.8 % (0.0-2.0); EOSINOPHIL % 3.1 % (0-5); GRANULOCYTE % 64.6 % (42.2-75.2); HEMATOCRIT 32.8 % (37-47); MEAN CORPUSCULAR HGB 22.2 PG (27.0-31.0); MEAN CORPUSCULAR HGB CONC 31.2 G/DL (33.0-37.0); MEAN CORPUSCULAR VOLUME 71.2 FL (81.0-99.0); MEAN PLATELET VOLUME 8.3 FL (7.4-10.4); PLATELET COUNT 496 /CUMM (130-400); RBC DISTRIBUTION WIDTH 18.6 % (11.5-14.5); RED BLOOD CELL CT 4.61 /CUMM (4.20-5.40); WHITE BLOOD CELL COUNT 10.4 /CUMM (4.8-10.8)
--- NOTE | 2017-11-16 21:39 | ED PSYCH CRISIS CONSULTATION ---
Crisis Consult Basic Assessment Date of Consult: 11/16/17 Responsible Person/Accompanied By: Self Insurance Authorization: Insurance #1: Insurance name: RON Iverson C&A Phone number: Policy number: [id number] Group number: Authorization number: ED Provider: Patient's ED Provider: Mirella Cheatham Primary Care Physician: Patient's PCP: Shameka Cloud MD PCP's Current Psychiatrist: Alix Jeffrey MD Chief Complaint: Psychiatric Related Complaint Patient's Quote: "I stayed in bed all day." Present Illness: Patient is a 26 year old, single, female brought to the ED by ambulance from [facility] due to worsening depression and SI. Patient reports chronic suicidal thoughts and a history of cutting. She endorses crying episodes, amotivation, sadness, poor self-esteem and episodes of rage. She was tearful and states "I don't know what to do." Patient states "I tell people I'm ok, but inside I'm dying." At times, patient has thoughts to drive her car into the [place] after she brings her son to school, but then thinks about her son and these thoughts pass. Patient is diagnosed with Bipolar Disorder. She was hospitalized at [facility] December 2016 for SI and cutting. She discharged and was followed by Care and then referred to [facility] for worsening symptoms. She started IOP on 11/01/17 and reports no progress and medication non-compliance. C-SSRS was conducted. Risk factors include self-injurious behavior, suicidal thoughts, substance abuse. Protective factors include support from her mother, identifies her son is her reason for living, and engaged in work and school. Dr. Jeffrey was consulted on this case. Patient agrees to voluntary admission to inpatient psychiatry. Bed search will be conducted or patient will be admitted to [facility] if a female bed is available . Patient's Address: [address] [place] [address] Other Phone Number: Who Do You Live With? Son Family/Informants Interviewed: Kimberley Moser APRN Allergies - Coded Allergies: No Known Allergies (01/02/17) Current Medications - Scheduled Medications Amlodipine Besylate 5 MG TABLET 5 MG PO DAILY HTN #14 TAB Prescribed by Meg Benitez APRN on 01/06/17 Famotidine 20 MG TABLET 40 MG PO DAILY GERD #28 TAB Prescribed by Meg Benitez APRN on 01/06/17 Fluoxetine HCl 10 MG CAPSULE 1 CAP PO DAILY DEPRESSION #14 CAP Prescribed by Meg Benitez APRN on 01/06/17 Lurasidone HCl (Latuda) 20 MG TABLET 20 MG PO DAILY@0800 mood stabilization # 14 TAB Prescribed by Meg Benitez APRN on 01/06/17 Multivitamin (One Daily Multivitamin) 1 EACH TABLET 1 TAB PO DAILY vitamin support #14 TAB Prescribed by Meg Benitez APRN on 01/06/17 Laboratory Results: Laboratory Tests 11/16/171841: Anion Gap 13, Estimated GFR > 60, BUN/Creatinine Ratio 17.1, Glucose 92, Calcium 9.7, Total Bilirubin 0.3, AST 13 L, ALT 19, Alkaline Phosphatase 53, Total Protein 7.4, Albumin 4.0, Globulin 3.4, Albumin/Globulin Ratio 1.2, CBC w Diff NO MAN DIFF REQ, RBC 4.61, MCV 71.2 L, MCH 22.2 L, MCHC 31.2 L, RDW 18.6 H, MPV 8.3, Gran % 64.6, Lymphocytes % 26.7, Monocytes % 4.8, Eosinophils % 3.1, Basophils % 0.8, Absolute Granulocytes 6.8 H, Absolute Lymphocytes 2.8, Absolute Monocytes 0.5, Absolute Eosinophils 0.3, Absolute Basophils 0.1, Serum Alcohol < 10.0 11/16/171839: Urine Opiates Screen < 100, Methadone Screen < 40, Barbiturate Screen < 60, Ur Phencyclidine Scrn < 6.00, Amphetamines Screen 118, U Benzodiazepines Scrn < 85, Urine Cocaine Screen < 50, Urine Cannabis Screen 9.70, Urine Color YEL, Urine Clarity CLEAR, Urine pH 6.0, Ur Specific [place] 1.020, Urine Protein NEG, Urine Ketones NEG, Urine Nitrite NEG, Urine Bilirubin NEG, Urine Urobilinogen 0.2, Ur Leukocyte Esterase NEG, Ur Microscopic EXAM NOT REQUIRED, Urine Hemoglobin NEG, Urine Glucose NEG, Urine Test NEGATIVE (Tristan CARSON,Danielle) Addendum Addendum Pt reassessed by Crisis. Pt continues to require inpatient psychiatric treatment. Case reviewed with Dr Dominique. Pt will be a voluntary admission to [facility]. 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: genital herpes, miscarriage Past Surgical History Surgical History: , tonsillectomy Psychosocial History Strengths/Capabilities: employed, in treatment,supportive family Physical Limitations (Interventions): none stated Psychiatric Treatment History Psych Treatment Psychiatric Treatment Yes Inpatient Treatment Yes (Dec, 2016 ) Outpatient Treatment Yes Location of Treatment [facility] Reason for Treatment Bipolar Disorder Dates of Treatment 09/30-present Response to Treatment referred to IOP Diagnosis by History: Bipolar Disorder Substance Use/Abuse History Drug Use/Abuse Substances Used/Abused Yes Substance Used/Abused Alcohol First Use 11 years old Last Used one week ago How much used/taken unknown How often daily For how long "years" Substance Abuse Treatment Substance Abuse Treatment Past Substance Abuse TX Yes Inpatient Treatment No Outpatient Treatment Yes Location of Treatment [facility] Reason for Treatment Alcohol use and cannabis use Dates of Treatment 11/01/17-11/16/17 Response to Treatment Sent to ED from [facility] (Danielle Hudson LCSW) Current Mental Status Mental Status Orientation: Person, Place, Situation Affect: Depressed, Hopeless, Sad Speech: WNL Neuro-vegetative: Anhedonia, Appetite Increased, Concentration Poor, Energy Decreased, Helpless, Hypersomnia, Loss of Interest, Sleep Disturbance Appearance Appearance- Dress/Hygiene: Patient is dressed in a hospital gown; appears stated age Behaviors Thought Process: WNL Thought Content: WNL Memory: WNL Insight: Fair SI/HI Risk Assessment Past Suicidal Ideation/Attempts Yes Current Suicidal Ideation/Att Yes Past Homicidal Ideation/Att: No Current Homicidal Ideation/Attempts No Degree of Intent: Thoughts/No Intent Danger To: Self Gravely Disabled: Poor Impulse Control Risk Factors: high anxiety/distress, substance abuse Lethality Ratin PTSD Checklist PTSD Score: PTSD Score: Response Value Disturbing memories,thoughts,images of stressful experience? Quite a bit 4 Disturbing dreams of stressful experience from past? A little bit 2 Suddenly acting/feeling as if reliving stressful experience? Moderately 3 Unpleasant feeling when reminded of stressful experience? Moderately 3 Physical reactions when reminded of stressful experience? Not at all 1 Avoid thinking/talking of stressful exp. to avoid reactions? Moderately 3 Avoid activities/situations that remind of stressful exp.? A little bit 2 Trouble remembering important parts of stressful experience? Quite a bit 4 Loss of interest in things that you used to enjoy? Extremely 5 Feeling distant or cut off from other people? Extremely 5 Feeling emotionally numb/unable to love those close to you? Extremely 5 Feeling as if your future will somehow be cut short? Quite a bit 4 Trouble falling or staying asleep? Quite a bit 4 Feeling irritable or having angry outbursts? Quite a bit 4 Having difficulty concentrating? Extremely 5 Being super alert or watchful on guard? A little bit 2 Feeling jumpy or easily startled? Not at all 1 Total 57 ED Management Sitter: Yes Restraints: No (Danielle Hudson LCSW) DSM5/PS Stressors/Medical Prob Diagnosis' (DSM 5, Stressors, Medical): F31.9 Unspecified bipolar disorder with psychosis, F10.20 Alcohol use disorder severe, F12.20 Cannabis use disorder severe; , asthma, s/p age 20, GERD, microcytic anemia; Financial stress Current GAF: 25 (Danielle Hudson LCSW) Departure Disposition Psych Medical Clearance Date: 11/16/17 Medically Cleared at: 2014 Time Started: 2014 Time Ended: 2099 Psychiatrist Consulted: Alix Jeffrey MD Date Disposition Established: 11/16/17 Time Disposition Established: 2099 Plan for Disposition - Modality: Inpatient Psychiatry Facility: [facility] Follow-up Appt Date: 11/17/17 Rationale for Disposition: Patient was sent to the ED from [facility] due to worsening depression and SI. Patient reports daily SI and a history of self-injury (cutting). Patient does not feel safe and agrees to voluntary admission to inpatient psychiatry. Bed search will need to be conducted or patient will be admitted to [facility] if a female bed is available . Type of IP Admission: Voluntary Referrals Shameka Cloud MD (PCP/Family) (Danielle Hudson LCSW)
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
[2017-11-17 15:28] VITALS: BP 146/89
[2017-11-17] MEDS ORDERED: LATUDA40 M1 PO (16:14)
[2017-11-17] MEDS ORDERED: WELLBUTRIN SR100 M2 PO (16:15)
[2017-11-17 20:06] VITALS: BP 97/63
[2017-11-18 08:00] VITALS: BP 144/79
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
[2017-11-18 12:06] VITALS: BP 142/79
--- NOTE | 2017-11-18 12:55 | CP SOUTH PROGRESS NOTE PSYCH ---
Psych (Inpt) Progress Note Progress Note Include the following elements, when applicable: Involvement in the active treatment of the patient with behavioral observations of the patient and the patient's response to the treatment. Review of the ongoing treatment process in the context of the treatment plan. Indication of how multi-disciplinary staff members are carrying out the treatment plan. Plans for future interventions and recommendations for revision of the treatment plan. Liaison with other physicians/providers. Progress Note: Pt feels that hospitalization is never helpful. She notes that she went off meds because "I was too even, I stopped feeling the ups and downs of life." She admitted when stopped meds, "life was crazy" but still feels meds are not helpful and does not want to take them. Discussed ECT given significant depression. She notes that she feels as though she is in correction here at [facility]. Denies SI or HI Current Medications Sig/Martir Start time Last Medication Dose Route Stop Time Status Admin Acetaminophen 650 MG Q6P PRN 11/17 1200 AC 11/17 PO 1802 Al Hydroxide/Mg 30 ML Q4-6 PRN PRN 11/17 1200 AC Hydroxide PO Benztropine Mesylate 1 MG Q6P PRN 11/17 1200 AC PO Benztropine Mesylate 1 MG Q6P PRN 11/17 1200 AC IM Bupropion HCl 100 MG 0800,1700 11/17 1700 AC 11/18 PO 0828 Folic Acid 0 .STK-MED ONE 11/17 1253 DC PO Folic Acid 1 MG DAILY@0800 /06 1200 AC 11/18 PO 11/19 0801 0828 Gabapentin 300 MG Q6P PRN 11/17 1200 DC PO Haloperidol 5 MG Q6P PRN 11/17 1200 AC PO Haloperidol 5 MG Q6P PRN 11/17 1200 AC IM Lorazepam 1 MG Q6PRN PRN 11/17 1515 AC PO Lorazepam 2 MG AT BEDTIME NEED.. 11/17 1515 AC 11/17 PO 2141 Lorazepam 2 MG Q6P PRN 11/17 1200 AC IM Lorazepam 2 MG Q2P PRN 11/17 1200 DC PO Lorazepam 1 MG Q2P PRN 11/17 1200 DC PO Lurasidone HCl 40 MG 2000 11/18 2000 AC PO Lurasidone HCl 40 MG DAILY@1700 04/06 1700 DC 11/17 PO 1701 Magnesium Hydroxide 30 ML AT BEDTIME NEED.. 11/17 1200 AC PO Multivitamins 0 .STK-MED ONE 11/17 1253 DC PO Multivitamins 1 TAB DAILY@11/17 1215 AC 11/18 PO 0828 Nicotine 21 MG DAILY 11/18 1000 AC TOP Nicotine 2 MG Q2 HRS NEEDED PRN 11/17 1515 AC PO Thiamine HCl 0 .STK-MED ONE 11/17 1252 DC PO Thiamine HCl 100 MG DAILY@11/17 1200 AC 11/18 PO 11/19 0801 0828 Topiramate 25 MG BID 11/17 1513 AC 11/18 PO 0828 Trazodone HCl 50 MG AT BEDTIME NEED.. 11/17 1200 DC PO Laboratory Tests 11/16 1842 Chemistry Sodium (137 - 145 mmol/L) 141 Potassium (3.5 - 5.1 mmol/L) 4.2 Chloride (98 - 107 mmol/L) 103 Carbon Dioxide (22 - 30 mmol/L) 24 Anion Gap (5 - 16) 13 BUN (7 - 17 mg/dL) 12 Creatinine (0.5 - 1.0 mg/dL) 0.7 Estimated GFR (>60 ml/min) > 60 BUN/Creatinine Ratio (7 - 25 %) 17.1 Glucose (65 - 99 mg/dL) 92 Hemoglobin A1c (4.2 - 5.8 %) 5.7 Calcium (8.4 - 10.2 mg/dL) 9.7 Total Bilirubin (0.2 - 1.3 mg/dL) 0.3 AST (14 - 36 U/L) 13 L ALT (9 - 52 U/L) 19 Alkaline Phosphatase (<127 U/L) 53 Total Protein (6.3 - 8.2 g/dL) 7.4 Albumin (3.5 - 5.0 g/dL) 4.0 Globulin (1.9 - 4.2 gm/dL) 3.4 Albumin/Globulin Ratio (1.1 - 2.2 %) 1.2 Triglycerides (<150 mg/dL) 145 Cholesterol (<200 MG/DL) 196 LDL Cholesterol, Calc (65 - 129 mg/dL) 142 H HDL Cholesterol (40 - 60 mg/dL) 25 L Cholesterol/HDL Ratio (0.00 - 4.23 %) 8 H Free T4 (0.79 - 2.35 ng/dL) 1.12 Total T3 (0.97 - 1.69 ng/mL) 1.40 TSH &T3 &Free T4 Intrp (0.270 - 4.20 uIU/mL) 2.440 Hematology CBC w Diff NO MAN DIFF REQ WBC (4.8 - 10.8 /CUMM) 10.4 RBC (4.20 - 5.40 /CUMM) 4.61 Hgb (12.0 - 16.0 G/DL) 10.2 L Hct (37 - 47 %) 32.8 L MCV (81.0 - 99.0 FL) 71.2 L MCH (27.0 - 31.0 PG) 22.2 L MCHC (33.0 - 37.0 G/DL) 31.2 L RDW (11.5 - 14.5 %) 18.6 H Plt Count (130 - 400 /CUMM) 496 H MPV (7.4 - 10.4 FL) 8.3 Gran % (42.2 - 75.2 %) 64.6 Lymphocytes % (20.5 - 51.1 %) 26.7 Monocytes % (1.7 - 9.3 %) 4.8 Eosinophils % (0 - 5 %) 3.1 Basophils % (0.0 - 2.0 %) 0.8 Absolute Granulocytes (1.4 - 6.5 /CUMM) 6.8 H Absolute Lymphocytes (1.2 - 3.4 /CUMM) 2.8 Absolute Monocytes (0.10 - 0.60 /CUMM) 0.5 Absolute Eosinophils (0.0 - 0.7 /CUMM) 0.3 Absolute Basophils (0.0 - 0.2 /CUMM) 0.1 Toxicology Serum Alcohol (<10 MG/DL) < 10.0 04 1840 Toxicology Urine Opiates Screen (>2000 NG/ML) < 100 Methadone Screen (>300 NG/ML) < 40 Barbiturate Screen (>200 NG/ML) < 60 Ur Phencyclidine Scrn (>25 NG/ML) < 6.00 Amphetamines Screen (>1000 NG/ML) 118 U Benzodiazepines Scrn (>200 NG/ML) < 85 Urine Cocaine Screen (>300 NG/ML) < 50 Urine Cannabis Screen (>50 NG/ML) 9.70 Urines Urine Color (YEL,AMB,STR) YEL Urine Clarity (CLEAR) CLEAR Urine pH (5.0 - 8.0) 6.0 Ur Specific [place] (1.001 - 1.035) 1.020 Urine Protein (NEG,<30 MG/DL) NEG Urine Ketones (NEG) NEG Urine Nitrite (NEG) NEG Urine Bilirubin (NEG) NEG Urine Urobilinogen (0.1 - 1.0 EU/dl) 0.2 Ur Leukocyte Esterase (NEG) NEG Ur Microscopic EXAM NOT REQUIRED Urine Hemoglobin (NEG) NEG Urine Glucose (N MG/DL) NEG Urine Test NEGATIVE Vital Signs Date Time Temp Pulse Resp B/P B/P Pulse O2 O2 Flow FiO2 Mean Ox Delivery Rate 11/18 1206 80 142/79 11/18 0800 99.2 88 144/79 11/17 2006 98.2 97 97/63 11/17 1528 98.5 90 146/89 MSE General appearance: good hygiene and grooming; Attitude: cooperative; Eye contact: appropriate; Movement: no psychomotor agitation or slowing; Speech: nl fluency, nl rate/rhythm, nl volume, nl prosody; Mood: "sad and mad" Affect: irritable, flat, appropriate, constricted, non-labile, congruent; Thought process: linear and goal-directed; Thought content: denied SI or HI, no paranoid ideation; Perception: denied hallucinations- auditory, visual, does not appear to be responding to internal stimuli; I/J: limited A/P: Pt with Bipolar disorder with worsening depression and mood lability in the setting of med noncomplaince. -Continue current medication regimen except changed latuda to bedtime as feeling sedated - Discussed ECT with pt -Encourage integration into the milieu
[2017-11-18 15:42] VITALS: BP 140/81
--- NOTE | 2017-11-18 16:06 | History & Physical ---
General Information and HPI MD Statement: I have seen and personally examined GABBY DAMICO and documented this H&P. The patient is a 26 year old F who presented with a patient stated chief complaint of [ worsening depression and suicidal ideation. ]. History of Present Illness: 26 year old, single, female brought to the ED by ambulance from [facility] due to worsening depression and SI. Pt has pmh of morbid obesity , smoking, h/o binge drinking and ? Pre Dm admitted to [facility] with above complaints. smokes 1 PPD and binge drinks - last weekend drank wine. Allergies/Medications Allergies: Coded Allergies: No Known Allergies (01/02/17) Home Med list Amlodipine Besylate 5 MG TABLET 5 MG PO DAILY HTN Take 1 tab po daily. Bupropion HCl (Wellbutrin Sr) 100 MG TABLET.ER 1 TAB PO DAILY MENTAL HEALTH ( Reported) Famotidine 20 MG TABLET 40 MG PO DAILY GERD Take 2 tabs po daily. Fluoxetine HCl 10 MG CAPSULE 1 CAP PO DAILY DEPRESSION Take 1 cap po daily. Lurasidone HCl (Latuda) 40 MG TABLET 1 TAB PO QPM MENTAL HEALTH (Reported) Multivitamin (One Daily Multivitamin) 1 EACH TABLET 1 TAB PO DAILY vitamin support Take 1 tab po daily. Past History Travel History Traveled to [place] past 21 day No Medical History Neurological: NONE EENT: NONE Cardiovascular: hypertension Respiratory: asthma Gastrointestinal: NONE Hepatic: NONE Renal: NONE Musculoskeletal: NONE Psychiatric: depression Endocrine: PRE DIABETES Blood Disorders: anemia Cancer(s): NONE FAMILY PRACTICE NURSE PRACTITIONER/Reproductive: genital herpes, miscarriage History of MRSA: Yes History of VRE: No History of CDIFF: No Surgical History Surgical History: , tonsillectomy Past Family/Social History Family History Relations & Conditions if any FATHER (HTN and diabetes). MOTHER (Hypertension). Paternal grandmother (CAD, [place]). Aunt (Colon cancer). Psychosocial History Where do you live? Home Who Do You Live With? child Services at Home: None Primary Language: [place] Islander Smoking Status: Current Everyday Smoker ETOH Use: Binge drinker Functional Ability ADLs Independent: dressing, eating, toileting, bathing. Ambulation: independent IADLs Independent: shopping, food prep, telephone, transportation. Employment History Employment Employed Review of Systems Review of Systems Constitutional: Denies: chills, fever. EENTM: Denies: eye pain. Cardiovascular: Denies: chest pain, palpitations. Respiratory: Denies: cough, short of breath. GI: Denies: abdominal pain. Musculoskeletal: Denies: back pain, joint pain. Skin: Denies: jaundice. Neurological/Psychological: Reports: depressed. Exam & Diagnostic Data Last 24 Hrs of Vital Signs/I&O Vital Signs Date Time Temp Pulse Resp B/P B/P Pulse O2 O2 Flow FiO2 Mean Ox Delivery Rate 11/18 1542 81 140/81 11/18 1206 80 142/79 11/18 0800 99.2 88 144/79 04 2006 98.2 97 97/63 Physical Exam General Appearance Alert, Oriented X3, Cooperative, No Acute Distress Skin No Rashes HEENT Atraumatic, EOMI Neck Supple Cardiovascular Regular Rate, Normal S1, Normal S2 Lungs Clear to Auscultation, Normal Air Movement Abdomen Soft, No Tenderness Neurological Exam Findings: Normal Gait, Normal Speech Cranial Nerves II through XII: intact Assessment/Plan Assessment: Depression and SI- management as per psych. Pre DM- Aic 5.7/ MOrbid obesity- pt encouraged to loose wt. Not motivated. Smoking cessation- counselled about quitting. cont nicotine patch Alcohol use disorder- counselled to quit. As Ranked By This Provider Problem List: 1. Major depression 2. Bipolar disorder, unspecified Qualifiers Active/Remission status: remission status unspecified Qualified Code: F31.9 - Bipolar disorder, unspecified 3. Suicidal ideation Miscellaneous Miscellaneous Documentation Attending Case Discussed With: Georgette WEINBERG,[place] Primary Care Physician: Shameka Cloud MD Patient sees these Specialists none Level of Patient Care: [facility]
[2017-11-18 20:00] VITALS: BP 146/90
[2017-11-19 08:03] VITALS: BP 140/83
[2017-11-19 12:13] VITALS: BP 141/84
--- NOTE | 2017-11-19 12:47 | CP SOUTH PROGRESS NOTE PSYCH ---
Psych (Inpt) Progress Note Progress Note Include the following elements, when applicable: Involvement in the active treatment of the patient with behavioral observations of the patient and the patient's response to the treatment. Review of the ongoing treatment process in the context of the treatment plan. Indication of how multi-disciplinary staff members are carrying out the treatment plan. Plans for future interventions and recommendations for revision of the treatment plan. Liaison with other physicians/providers. Progress Note: Pt spoke with mom yesterday. Frustrated around sleep as waking up in the middle of night. Denies SI or HI. Still does not want to stay on meds s/p discharge. Current Medications Sig/Martir Start time Last Medication Dose Route Stop Time Status Admin Acetaminophen 650 MG Q6P PRN 11/17 1200 AC 11/17 PO 1802 Al Hydroxide/Mg 30 ML Q4-6 PRN PRN 11/17 1200 AC Hydroxide PO Benztropine Mesylate 1 MG Q6P PRN 11/17 1200 AC PO Benztropine Mesylate 1 MG Q6P PRN 11/17 1200 AC IM Bismuth Subsalicylate 30 ML PCHS PRN 11/19 1230 CANr PO Bupropion HCl 100 MG 0800,1700 11/17 1700 AC 11/19 PO 0758 Folic Acid 1 MG DAILY@11/17 1200 DC 11/19 PO 11/20 0701 0920 Haloperidol 5 MG Q6P PRN 11/17 1200 AC PO Haloperidol 5 MG Q6P PRN 11/17 1200 AC IM Lorazepam 1 MG Q6PRN PRN 11/17 1515 AC PO Lorazepam 2 MG AT BEDTIME NEED.. 11/17 1515 DC 11/18 PO 2116 Lorazepam 2 MG Q6P PRN 11/17 1200 AC IM Lurasidone HCl 40 MG 2000 11/19 1999 AC 11/18 PO 2044 Magnesium Hydroxide 30 ML AT BEDTIME NEED.. 11/17 1200 AC PO Melatonin 5 MG AT BEDTIME 11/19 2200 AC PO Multivitamins 1 TAB DAILY@11/17 1215 AC 11/19 PO 0758 Nicotine 21 MG DAILY 11/18 1000 AC TOP Nicotine 2 MG Q2 HRS NEEDED PRN 11/17 1515 AC PO Thiamine HCl 100 MG DAILY@11/17 1200 DC 11/19 PO 11/19 0801 0920 Topiramate 25 MG BID 11/17 1513 AC 11/19 PO 0758 Trazodone HCl 100 MG AT BEDTIME 11/19 2200 AC PO Trazodone HCl 50 MG AT BEDTIME NEED.. 11/19 1230 AC PO Laboratory Tests 11/16 1842 Chemistry Sodium (137 - 145 mmol/L) 141 Potassium (3.5 - 5.1 mmol/L) 4.2 Chloride (98 - 107 mmol/L) 103 Carbon Dioxide (22 - 30 mmol/L) 24 Anion Gap (5 - 16) 13 BUN (7 - 17 mg/dL) 12 Creatinine (0.5 - 1.0 mg/dL) 0.7 Estimated GFR (>60 ml/min) > 60 BUN/Creatinine Ratio (7 - 25 %) 17.1 Glucose (65 - 99 mg/dL) 92 Hemoglobin A1c (4.2 - 5.8 %) 5.7 Calcium (8.4 - 10.2 mg/dL) 9.7 Total Bilirubin (0.2 - 1.3 mg/dL) 0.3 AST (14 - 36 U/L) 13 L ALT (9 - 52 U/L) 19 Alkaline Phosphatase (<127 U/L) 53 Total Protein (6.3 - 8.2 g/dL) 7.4 Albumin (3.5 - 5.0 g/dL) 4.0 Globulin (1.9 - 4.2 gm/dL) 3.4 Albumin/Globulin Ratio (1.1 - 2.2 %) 1.2 Triglycerides (<150 mg/dL) 145 Cholesterol (<200 MG/DL) 196 LDL Cholesterol, Calc (65 - 129 mg/dL) 142 H HDL Cholesterol (40 - 60 mg/dL) 25 L Cholesterol/HDL Ratio (0.00 - 4.23 %) 8 H Free T4 (0.79 - 2.35 ng/dL) 1.12 Total T3 (0.97 - 1.69 ng/mL) 1.40 TSH &T3 &Free T4 Intrp (0.270 - 4.20 uIU/mL) 2.440 Hematology CBC w Diff NO MAN DIFF REQ WBC (4.8 - 10.8 /CUMM) 10.4 RBC (4.20 - 5.40 /CUMM) 4.61 Hgb (12.0 - 16.0 G/DL) 10.2 L Hct (37 - 47 %) 32.8 L MCV (81.0 - 99.0 FL) 71.2 L MCH (27.0 - 31.0 PG) 22.2 L MCHC (33.0 - 37.0 G/DL) 31.2 L RDW (11.5 - 14.5 %) 18.6 H Plt Count (130 - 400 /CUMM) 496 H MPV (7.4 - 10.4 FL) 8.3 Gran % (42.2 - 75.2 %) 64.6 Lymphocytes % (20.5 - 51.1 %) 26.7 Monocytes % (1.7 - 9.3 %) 4.8 Eosinophils % (0 - 5 %) 3.1 Basophils % (0.0 - 2.0 %) 0.8 Absolute Granulocytes (1.4 - 6.5 /CUMM) 6.8 H Absolute Lymphocytes (1.2 - 3.4 /CUMM) 2.8 Absolute Monocytes (0.10 - 0.60 /CUMM) 0.5 Absolute Eosinophils (0.0 - 0.7 /CUMM) 0.3 Absolute Basophils (0.0 - 0.2 /CUMM) 0.1 Toxicology Serum Alcohol (<10 MG/DL) < 10.0 04/ 1840 Toxicology Urine Opiates Screen (>2000 NG/ML) < 100 Methadone Screen (>300 NG/ML) < 40 Barbiturate Screen (>200 NG/ML) < 60 Ur Phencyclidine Scrn (>25 NG/ML) < 6.00 Amphetamines Screen (>1000 NG/ML) 118 U Benzodiazepines Scrn (>200 NG/ML) < 85 Urine Cocaine Screen (>300 NG/ML) < 50 Urine Cannabis Screen (>50 NG/ML) 9.70 Urines Urine Color (YEL,AMB,STR) YEL Urine Clarity (CLEAR) CLEAR Urine pH (5.0 - 8.0) 6.0 Ur Specific [place] (1.001 - 1.035) 1.020 Urine Protein (NEG,<30 MG/DL) NEG Urine Ketones (NEG) NEG Urine Nitrite (NEG) NEG Urine Bilirubin (NEG) NEG Urine Urobilinogen (0.1 - 1.0 EU/dl) 0.2 Ur Leukocyte Esterase (NEG) NEG Ur Microscopic EXAM NOT REQUIRED Urine Hemoglobin (NEG) NEG Urine Glucose (N MG/DL) NEG Urine Test NEGATIVE Vital Signs Date Time Temp Pulse Resp B/P B/P Pulse O2 O2 Flow FiO2 Mean Ox Delivery Rate 11/19 1213 83 141/84 11/19 0803 99.0 100 140/83 11/18 2000 98.7 89 146/90 11/18 1542 81 140/81 MSE General appearance: good hygiene and grooming; Attitude: cooperative; Eye contact: appropriate; Movement: no psychomotor agitation or slowing; Speech: nl fluency, nl rate/rhythm, nl volume, nl prosody; Mood: "I need to talk with my therapist" Affect: irritable, flat, appropriate, constricted, non-labile, congruent; Thought process: linear and goal-directed; Thought content: denied SI or HI, no paranoid ideation; Perception: denied hallucinations- auditory, visual, does not appear to be responding to internal stimuli; I/J: limited A/P: Pt with Bipolar disorder with worsening depression and mood lability in the setting of med noncomplaince. - w/u for anemia given H/H and MCV like TYLER - Continue current medication regimen - Discussed ECT with pt - Encourage integration into the milieu
[2017-11-19 15:44] VITALS: BP 144/81
[2017-11-19 19:41] VITALS: BP 133/81
[2017-11-20 07:40] VITALS: BP 140/63
[2017-11-20 12:07] VITALS: BP 132/66
[2017-11-20 12:21] VITALS: BP 132/60
--- NOTE | 2017-11-20 13:37 | CP SOUTH PROGRESS NOTE PSYCH ---
Psych (Inpt) Progress Note Progress Note Laboratory Tests 11/20 11/20 0655 0655 Chemistry Iron (37 - 170 ug/dL) 22 L TIBC (265 - 497 ug/dL) 327 Ferritin (6.24 - 137 ng/mL) 30.2 Vitamin B12 (239 - 931 pg/mL) 355 RBC Folate Pending Vital Signs Date Time Temp Pulse B/P B/P Pulse O2 O2 Flow FiO2 11/20 1221 81 132/60 11/20 1207 81 132/66 11/20 0740 99.3 88 140/63 11/19 1941 98.7 93 133/81 MSE good hygiene and grooming; cooperative; appropriate; no psychomotor agitation or slowing; Speech: nl fluency, nl rate/rhythm, nl volume, nl prosody; Mood up and down, Affect: irritable; Thought process: linear and goal-directed; denied SI or HI, no paranoid ideation ; Perception: denied hallucinations- auditory, visual, does not appear to be responding to internal stimuli A/P: Pt with Bipolar disorder with worsening depression and mood lability in the setting of med noncomplaince. Increase Wellbutrin-XL to 300 mg daily - Continue current medication regimen call then fax to Lolis Russell APRN at Care setting of med noncomplaince. - w/u for anemia given H/H and MCV like TYLER - Continue current medication regimen - Discussed ECT with pt - Encourage integration into the milieu
[2017-11-20 15:56] VITALS: BP 143/76
--- NOTE | 2017-11-20 17:00 | SOCIAL WORKER PROG NOTE PSYCH ---
Social Work Progress Note Progress Note This commercial underwriter met with patient. She attributed current inpatient admission to "Bipolar depression." Patient stated that she had been attending [facility] ( referred by Jose Alfredo Calvert, [facility]) and attending Mon, Mon and from -. She stated that while meeting with a clinician at the [facility], an ELECTRICIAN THIRD (name unknown to patient) joined the conversation at which time she "felt set off by the ELECTRICIAN THIRD. I don't know what she said, but it set me off." Patient stated that she began screaming and this resulted in her being transported to the ER from [facility]. Patient discussed feeling as though her medications have caused numerous undesireable side effects since she began taking any medications (weight gain, delusions, VH, HI, self injury). Patient denied SI/HI/AH/VH. She stated that she initially sought help due to irritability and feels devon ther symptoms have worsened since then. Patient reported alcohol and MJ use with last use last weekend, "a dale and some wine." Patient stated that she felt that her substance use is not as severe as clinicians "make it out to be." Patient was agreeable to returning to [facility] upon discharge. She was agreeable to a family meeting with her mother, Kaci Oates ([phone]). Family meeting has been scheduled for 11/21/17 at 2:45pm.
[2017-11-20 19:44] VITALS: BP 142/78
[2017-11-21 07:31] VITALS: BP 139/79
--- NOTE | 2017-11-21 08:24 | CP SOUTH PROGRESS NOTE PSYCH ---
Psych (Inpt) Progress Note Progress Note The treatment team discussed the patient's treatment, progress, and aftercare plans. The team consisted of nursing staff, social work staff, group and milieu therapy staff, and psychiatrist I received the voicemail back from Lolis Russell APRN to [facility]. She indicated that the only SSRI that the patient has tried was Prozac. She also noted that of the time that she took the Prozac she was also on lithium and may be Latuda. It was not clear whether she gave the Prozac an adequate trial or not. Mental Status examination: The patient was alert, and oriented to time, place, and person. She showed normal psychomotor activity, no psychomotor agitation or slowing; She was talkative but not pressured. She reported that her mood continues to be up and down, the nursing noticed that her affect was elevated this morning. The patient was coherent/ linear and goal-directed thoughts process. The patient denied SI, denied violent thoughts or HI. There were no delusions or paranoid ideation. The patient denied hallucinations, does not appear to be responding to internal stimuli. Assessment: The patient is a 26-year-old single black female who was admitted to the inpatient psychiatric unit at [facility] on November 17, 2017 with worsening depression and thoughts of suicide. Treatment plan update: Continue Latuda 40 mg every evening with food Continue Wellbutrin-XL 300 mg daily Continue topiramate 50 mg twice daily Continue trazodone 50 mg at bedtime as needed Continue other medication regimen
[2017-11-21 12:12] VITALS: BP 137/81
--- NOTE | 2017-11-21 13:38 | SOCIAL WORKER PROG NOTE PSYCH ---
Social Work Progress Note Progress Note GABBY DAMICO [id number] GABBY DAMICO [id number] Pended Authorization # Client Authorization # Type of Request [id number] CONCURRENT Date of Admission/ Start of Services Requested From Submission Date 11/17/2017 11/21/2017 11/21/2017
--- NOTE | 2017-11-21 14:39 | Patient Discharge Instructions ---
Psych Discharge Inst General Discharge Information Reason for Admission: thoughts of suicide Psy Discharge Primary Diag+ Unspecified Bipolar Diorder, Disruptive Mood Dysregulation Disorder Summary Tests/Major Procedures Lab Hemoglobin A1c 5.7 % 11/16/17 1842 Lab Cholesterol 196 MG/DL 11/16/17 1842 Cholesterol/HDL Ratio 8 % H 11/16/17 1842 HDL Cholesterol 25 mg/dL L 11/16/17 1842 LDL Cholesterol, Calc 142 mg/dL H 11/16/17 1842 Triglycerides 145 mg/dL 11/16/17 184 Studies Pending at DC: none Patient Instructions Contact Information Your Psychiatrist on [facility] was Georgette WEINBERG,[place] * If you are experiencing an emergency related to this hospitalization, please call [phone] to contact the treating psychiatrist or the psychiatrist-on- call. * To Request a copy of your medical records, please contact the Medical Records Department at [phone]. * To request results of studies pending at the time of discharge, please call [phone]. * Continue your Medications until directed to stop by your Healthcare provider. General Medication Information Please continue to take your new medications and your continued home medications , unless otherwise indicated on your discharge medication list, or unless directed by your MD or MAGNETIC TAPE TYPEWRITER OPERATOR to stop them. Special Instructions Diet Regular Activity Normal - Tobacco Use Treatment Offered Post DC Medications Offered: Refused Tob Medication Tx Post DC Tobacco Treatment Plan: Refused Tobacco Tx Pgm - EtOH/Drug Use D/O Treatment Offered Post DC Medications Offered: NA-No EtOH/Drug Use D/O Post DC EtOH/SubAbuse TX Plan: NA-No EtOH/Drug Use D/O Metabolic Screening Patient on a neuroleptic(s) . Enter below results for Hemoglobin A1C, and lipid panel if obtained during the last 365 days. BMI: 62.100 Blood Pressure: 142/77 Laboratory Results From [facility] (If applicable): Lab Cholesterol 196 MG/DL 11/16/17 1842 Cholesterol/HDL Ratio 8 % H 11/16/17 1842 HDL Cholesterol 25 mg/dL L 11/16/17 1842 Hemoglobin A1c 5.7 % 11/16/17 1842 LDL Cholesterol, Calc 142 mg/dL H 11/16/17 1842 Triglycerides 145 mg/dL 11/16/17 1842 Advance Directives Does the Patient have Medical Advance Directives No/Refused further info Does Pt have Psychiatric Advance Directives? No/Refused further info Does Patient have a Designated Surrogate Decision Maker: No Information About Psychiatric Advance Directives Provided? Refused Discharge Plan Post Hospital Treatment Plan: IOP
[2017-11-21 15:41] VITALS: BP 147/85
--- NOTE | 2017-11-21 16:23 | SOCIAL WORKER PROG NOTE PSYCH ---
Social Work Progress Note Progress Note Dr. Palomino and this writer producer met with the patient and her mother for a family meeting. Symptoms leading to current admission and treatment plans were discussed. Dr. Palomino provided education on medications and answered questions and concerns related to medications prescribed to the patient. Patient discussed how her symptoms have impacted her life, such as work as well as work stressors. Patient stated that she is willing to return to [facility]. Patient's mother and patient were agreeable to discharge tomorrow if an intake could be scheduled for tomorrow. This writer producer spoke with Leslie Rojas LPC at [facility] and scheduled an intake for tomorrow at 11:30am. Patient was informed and accepting of the appointment.
[2017-11-21 19:39] VITALS: BP 139/79
[2017-11-22 07:43] VITALS: BP 142/77
[2017-11-22] MEDS ORDERED: LATUDA40 M1 PO ×2 (10:10→10:12)
[2017-11-22] MEDS ORDERED: MELATONIN5 M7 PO (10:10)
[2017-11-22] MEDS ORDERED: TOPIRAMATE25 M2 PO (10:10)
[2017-11-22] MEDS ORDERED: TRAZODONE HCL100 M1 PO (10:10)
[2017-11-22] MEDS ORDERED: BUPROPION XL300 M1 PO (10:10)
[2017-11-22] MEDS ORDERED: CHLORPROMAZINE25 M2 PO (10:14)
--- NOTE | 2017-11-22 11:00 | DISCHARGE SUMMARY REPORT-PSYCH ---
Visit Information Visit Dates/Diagnosis' Admission Date: 11/17/17 Discharge Date: 11/22/17 Reason for Admission: thoughts of suicide Psy Discharge Primary Diag: Unspecified Bipolar Diorder Disruptive Mood Dysregulation Disorder Psy Discharge Secondary Diag: Most likely Bipolar II vs Disruptive Mood Dysregula Hospital Course Significant Lab Findings: Lab Hct 32.8 % L 11/16/17 1842 Hgb 10.2 G/DL L 11/16/17 1842 Course Complications: The patient did not have any complications while she was on the inpatient psychiatric unit Consultations: The patient had a history and physical examination by the internet sales manager/hospitalist. Please refer to the patient's electronic health record for the internet sales manager's H&P Allergies: Coded Allergies: No Known Allergies (01/02/17) Hospital Course/TX Response: The patient presented to crisis and was admitted on 11/16/2017 11/17/2017: I saw the patient for the initial psychiatric evaluation. My Impression and Plan: 26-year-old black female who was admitted because of increasing depression and thoughts of suicide. She has been attending the intensive outpatient program at [facility]. Diagnosis(es): Unspecified bipolar disorder (F31.9), HTN, asthma, s/p age 20, GERD, microcytic anemia Treatment Plan: D/C CIWA patient has not been drinking daily and is not at risk of withdrawals Continue Latuda 40 mg daily per her request Increase Wellbutrin to 100 mg twice daily Topamax 25 mg twice daily Nicotine patch 21 mg daily and nicotine gum 2 mg as needed 11/18/2017: Dr. Solorio covering for the weekend. There were no changes in the patient's medications made. 11/19/2017: Dr. Solorio covering for the weekend, no changes in patient's medcations. 11/20/2017: Increase Wellbutrin-XL to 300 mg daily - Continue current medication regimen call then fax to Lolis Russell APRN at [facility] 11/21/2017: Continue Latuda 40 mg every evening with food Continue Wellbutrin-XL 300 mg daily Continue topiramate 50 mg twice daily Continue trazodone 50 mg at bedtime as needed 11/22/2017: Mental Status examination: The patient was alert, and oriented to time, place, and person. She showed normal psychomotor activity, no psychomotor agitation or slowing. She was talkative but not pressured. She reported that her mood was "okay," and denied feeling hopeless. She showed animated affect, good range, no tearfulness. The patient was coherent/ linear and goal-directed. The patient denied wishing or thinking of suicide. The patient denied violent thoughts or thoughts of homicide. There were no delusions or paranoid ideation. The patient denied hallucinations, does not appear to be responding to internal stimuli. Assessment: The patient is a 26-year-old single black female who was admitted to the inpatient psychiatric unit at [facility] on November 17, 2017 with worsening depression and thoughts of suicide. She has shown enough improvement to allow for discharge to [facility] Treatment plan update: Discharge Home Discharge HBIPS - Tobacco Use Treatment Offered Post DC Medications Offered: Script Given-See Med List Post DC Tobacco Treatment Plan: Refused Tobacco Tx Pgm - EtOH/Drug Use D/O Treatment Offered Post DC Medications Offered: NA-No EtOH/Drug Use D/O Post DC EtOH/SubAbuse TX Plan: NA-No EtOH/Drug Use D/O Metabolic Screening - Screen if on a Neuroleptic Medication - Metabolic screening should include: - Blood Pressure, BMI, Glucose or Hgb A1c, & a - Lipid profile from within the past 365 days. Metabolic Screening Patient on a neuroleptic(s) . Enter below results for Hemoglobin A1C, and lipid panel if obtained during the last 365 days. BMI: 62.100 Blood Pressure: 142/77 Laboratory Results From [facility] E[facility] (If applicable): Lab Cholesterol 196 MG/DL 11/16/17 1842 Cholesterol/HDL Ratio 8 % H 11/16/17 1842 HDL Cholesterol 25 mg/dL L 11/16/17 1842 Hemoglobin A1c 5.7 % 11/16/17 1842 LDL Cholesterol, Calc 142 mg/dL H 11/16/17 1842 Triglycerides 145 mg/dL 11/16/17 1842 Discharge Instructions General Discharge Information Multiple Neuroleptics: ([X]) Not Applicable Discharge Diet Regular Discharge Activity Normal DC Disposition: Patient was discharged home with plan to follow up with intensive outpatient program Referrals Ordered Referrals Provider Referral 11/22/17 For Groups: [[facility] IOP] [address] [phone] Intake appointment: Wednesday, November 22, 2017 at 11:30am Provider Referral 11/29/17 For Providers: [[facility]] For Groups: [Smoking Cessation Group] Post Discharge Smoking Cessation Group [address] [phone] Group meets every other Monday at 4pm Next group: 11/29/17, at 4pm Prescriptions Stop taking the following medications: Amlodipine Besylate (Amlodipine Besylate) 5 MG TABLET ORAL DAILY Qty = 14 Famotidine (Famotidine) 20 MG TABLET ORAL DAILY Qty = 28 Fluoxetine HCl (Fluoxetine HCl) 10 MG CAPSULE ORAL DAILY Qty = 14 Bupropion HCl (Wellbutrin Sr) 100 MG TABLET.ER ORAL DAILY Continue taking these medications: Multivitamin (One Daily Multivitamin) 1 EACH TABLET 1 Tablet ORAL DAILY Qty = 14 Instructions: Take 1 tab po daily. Comments: Last Taken:11/22/17 Time:8am Lurasidone HCl (Latuda) 40 MG TABLET 1 Tablet ORAL Every night Qty = 30 Comments: Last Taken:11/21/17 Time:8pm This prescription has been renewed Start taking the following new medications: Topiramate (Topiramate) 25 MG TABLET 75 Milligram ORAL 0800,1700 Qty = 90 No Refills Comments: Last Taken:11/22/17 Time:8am Bupropion HCl (Bupropion XL) 300 MG TAB.ER.24H 300 Milligram ORAL DAILY @8 AM Qty = 30 No Refills Comments: Last Taken:11/22/17 Time:8am Trazodone HCl (Trazodone HCl) 100 MG TABLET 100 Milligram ORAL AT BEDTIME Qty = 30 No Refills Comments: Last Taken:11/21/17 Time:10pm Melatonin (Melatonin) 5 MG TABLET 5 Milligram ORAL AT BEDTIME Qty = 30 No Refills Comments: Last Taken:11/21/17 Time:10pm Chlorpromazine HCl (Chlorpromazine HCl) 25 MG TABLET 2 Tablet ORAL EVERY 6 HOURS NEEDED as needed for anger/agitation Qty = 60 No Refills Comments: not given in hospital Studies Pending at Discharge none Copies To: [facility]
--- NOTE | 2017-11-22 11:02 | CP SOUTH PROGRESS NOTE PSYCH ---
Psych (Inpt) Progress Note Progress Note The treatment team discussed the patient's treatment, progress, and aftercare plans. The team consisted of nursing staff, social work staff, group and milieu therapy staff, and psychiatrist Mental Status examination: The patient was alert, and oriented to time, place, and person. She showed normal psychomotor activity, no psychomotor agitation or slowing. She was talkative but not pressured. She reported that her mood was "okay," and denied feeling hopeless. She showed animated affect, good range, no tearfulness. The patient was coherent/ linear and goal-directed. The patient denied wishing or thinking of suicide. The patient denied violent thoughts or thoughts of homicide. There were no delusions or paranoid ideation. The patient denied hallucinations, does not appear to be responding to internal stimuli. Assessment: The patient is a 26-year-old single black female who was admitted to the inpatient psychiatric unit at [facility] on November 17, 2017 with worsening depression and thoughts of suicide. She has shown enough improvement to allow for discharge to [facility] Treatment plan update: Discharge Home Continue Wellbutrin-XL 300 mg daily Continue topiramate 50 mg twice daily Continue trazodone 50 mg at bedtime as needed Continue other medication regimen
--- NOTE | 2017-11-22 11:57 | SOCIAL WORKER PROG NOTE PSYCH ---
Social Work Progress Note Faxed Referral(s) Referred To: [facility] Transition of Care Documents sent: TRANSFER SUMMARY Faxed to: [facility] Fax #: [phone] Faxed by: Tamar Morataya LCSW Date faxed: 11/22/17 Time Faxed: [phone]
--- NOTE | 2017-11-22 17:47 | SOCIAL WORKER PROG NOTE PSYCH ---
Social Work Progress Note Progress Note This chart writer met with patient. She stated that her mood was "great" and denied SI/HI/AH/VH and reports that she is not "stuffing" how she is feeling and being honest about her mood today. As she reported previously, patient identified her son and her mother as her protective factors. Patient stated that she was looking forward to [facility] and feels safe with this plan to discharge. She identified a safety plan in which she would "call mom, 211 or 911 or the [facility] crisis line." She was informed that she would also be provided with crisis numbers and warm lines upon discharge. Patient accepted the information for the smoking cessation group. Patient stated that she would contact her mother for a ride home from the [facility] intake today. She accepted an intake appointment with [facility] for today at 11:30pm. This chart writer received a call from [facility] inquiring about the status. Patient was informed and gave permission (JIM signed) for this chart writer to inform [facility]. She was informed of the discharge today and the discharge plan. As the patient had stated, [facility] confirmed that the patient may return to [facility] upon [facility] completion. Faxed Referral(s) Referred To: [facility] Transition of Care Documents sent: Health Summary Faxed to: [facility] Fax #: [phone] Faxed by: Jeanmarie Barker LCSW Date faxed: 11/22/17 Time Faxed: [phone]
== END 2017-11-22 11:26 | DRG 753 ==
LOC: ERH 17:53 → ERHI 11-17 10:18 → CP SOUTH 11-17 10:18 → ENTRNSPT 11-17 14:08 → EDTRNSPT 11-17 14:33 → EDTRNSPTSTS 11-17 14:33 → CP SOUTH 11-17 14:36 → CMPTRNSPT 11-17 14:44 → CP SOUTH 11-17 15:43 → DELTRNSPT 11-17 16:02 → ENRESERV 11-17 23:59 → CP SOUTH 11-22 11:26
PROVIDERS: Physician Assistant
DX: F31.9 Bipolar disorder, unspecified (principal); F34.81 Disruptive mood dysregulation disorder
CPT/HCPCS: 36415; 80307; 81003; 81025; G0463; G0480; J0515; J1630; J3490